=== PATIENT | female | born 1935 | race Caucasian/White ===

== ENCOUNTER 2021-03-02 14:12 | Inpatient (IN) ==
--- NOTE | 2021-03-02 14:34 | Emergency Department Note ---
Impression & Plan Pancreatitis, Nausea & vomiting, Acute dehydration ED Provider Note NAME: SAMMI BARAJAS AGE: 85 SEX: F : 1935 ARRIVES VIA: Walk-In INFORMANT: Patient, ED PROVIDER(S): Jose Raul Jeffries MD Chief Complaint: Nausea vomiting HPI: Patient does present with concern for nausea and vomiting. The patient states that it began around 1:00. Patient had last eaten around 1030 with a friend. The friend is not had any similar symptoms. Patient states that this does happen every so often most recently 6 months and several years prior to this. Patient reports that nothing is been found as to the etiology of her sy mptoms. Patient denies any chest pains or abdominal pains. Patient states typically she gets an IV and received IV medications at which point she subsequently improves. Patient denies any cough fevers or chills. The patient does have a history of kidney stones and lithotripsy. Patient states that she has absolutely no pain. The patient did have an x-ray completed along with an ultrasound completed at [facility] this morning. The patient did try to take something for her nausea but vomited soon thereafter. Patient denies any blood in the vomit. The patient's had recent bowel movements no dysuria hematuria bright red blood per rectum or dark stool. Patient states that she do es not follow with GI and she is never had an endoscopy. ROS: See HPI for pertinent positives and negatives. A total of 10 systems were reviewed and otherwise negative. Past medical history: See below Surgical history: See below Social history: See below Physical Exam: GENERAL: Mildly uncomfortable in appearance, emesis bag in hand. EYE EXAM: Normal conjunctiva. PERRL, no anisocoria and EOM's grossly intact w/o pain. NECK: Supple, no nuchal rigidity, no adenopathy, non-tender. No signs of meningismus. LUNGS: Clear to auscultation. Normal chest wall mechanics. HEART: NSR, no MRG. ABDOMEN: Abdomen soft, non-tender, normo-active bowel sounds, no masses, no rebound or guarding. BACK: No CVA TTP. SKIN: No rashes and no bruising. UPPER EXTREMITIES: Upper extremities are grossly normal. LOWER EXTREMITIES: Grossly normal, no edema. NEURO EXAM: A&O x3, cranial nerves II-XII grossly intact, normal speech, moves all 4 extremities on command w/o issue. Differential diagnoses: Gastroenteritis, food borne illness, infections, appendicitis, diverticulitis, inflammatory bowel disease, obstruction, GI bleed, biliary pathology, volvulus, as well as other pathologies. Course: Patient was seen and evaluated the bedside. Full history physical exam was performed. EKG interpreted by me Indication: Vomiting Normal sinus rhythm, rate of 68, normal intervals, normal axis, no ST changes or T WI. No significant change from comparison EKG November 02, 2010. Imaging Studies: See below Cardiac monitoring: An order was placed for continuous cardiac monitoring. The monitor shows a rate of 82 with sinus rhythm. MDM: Patient was seen due to concern for nausea and vomiting. The patient has no abdominal pain on exam. The patient is a history of kidney stones. Blood work is obtained along with an EKG troponin and the patient treated symptomatically with IV fluids and antiemetics. Patient blood work does show elevated lipase. The patient was ordered a CAT scan of the abdomen pelvis. Upon reassessment the patient was still having nausea so she was ordered additional antiemetics. I did review the patient's outpatient renal ultrasound which showed bilateral nephrolithiasis with apparent right renal cyst. The patient had an x-ray that did not show any demonstrable kidney stones. Patient's white count H&H and platelet count are normal. Mild prerenal azotemia. Troponin is not detectable. CT without any obvious evidence of pancreatitis. Patient subsequently did have some mild improvement in her symptoms. Given the pancreatitis I did speak the on-call hospitalist and instructing DREW kaye. Patient was admitted to Dr. Vasquez [facility]. Past Med/Surg History Medical History (Updated 03/02/21 @ 19:23 by Mabel Andrews PA-C) CKD (chronic kidney disease), stage III Dyslipidemia Glaucoma HTN (hypertension) Kidney stones PVCs (premature ventricular contractions) SVT (supraventricular tachycardia) Surgical History (Updated 03/02/21 @ 19:21 by Mabel Andrews PA-C) H/O lithotripsy History of appendectomy History of cardiac radiofrequency ablation History of cholecystectomy Family History (Updated 03/02/21 @ 19:22 by Mabel Andrews PA-C) Mother Colorectal cancer Diabetes Social History (Updated 03/02/21 @ 19:23 by Mabel Andrews PA-C) Smoking Status: Former smoker Hx Alcohol Use: No Hx Substance Use: No Preferred Language: [place] Feels Safe at Home: Yes Allergies Allergies Allergy/AdvReac Type Severity Reaction Status Date / Time brimonidine Allergy Irritable Unverified 03/02/21 16:30 bupropion [From Wellbutrin] Allergy IRREGULAR Unverified 03/02/21 16:30 HEART RATE oxycodone Allergy Unknown Unverified 03/02/21 16:30 tramadol Allergy Unknown Unverified 03/02/21 16:30 TRAVATAN Z, RESTASIS, Allergy Mild RASH Uncoded 11/02/10 09:32 ALPHAGAN Home Meds Home Medications Medication Instructions Recorded Confirmed acetaminophen [Tylenol Extra 500 mg PO Q6H PRN 03/02/21 03/02/21 Strength] aspirin [Aspirin Low Dose] 81 mg PO DAILY 03/02/21 03/02/21 biotin 5,000 mcg PO DAILY 03/02/21 03/02/21 carboxymethylcellulose sodium 1 drp OPB DAILY 03/02/21 03/02/21 [Refresh Liquigel] diphenoxylate-atropine 1 tab PO DAILY PRN 03/02/21 03/02/21 famotidine 20 mg PO DAILY 03/02/21 03/02/21 glucos sul [id number] 1 cap PO DAILY 03/02/21 03/02/21 [Glucosamine Chondroitin] meclizine 25 mg PO TID 03/02/21 03/02/21 meloxicam 7.5 mg PO DAILY 03/02/21 03/02/21 metoprolol succinate 25 mg PO DAILY 03/02/21 03/02/21 minoxidil [Rogaine] 1 ea TOPICAL DAILY 03/02/21 03/02/21 multivitamin 1 tab PO DAILY 03/02/21 03/02/21 ondansetron 4 mg PO Q8H PRN 03/02/21 03/02/21 sennosides-docusate sodium [Senna 1 tab-cap PO HS 03/02/21 03/02/21 with Docusate Sodium] simvastatin 10 mg PO HS 03/02/21 03/02/21 travoprost 1 drp OPB HS 03/02/21 03/02/21 Results & Data (ED) Vital Signs Vital Signs - 24 hr 03/02/21 14:24 03/02/21 16:30 03/02/21 18:00 Temperature 36.8 C Temperature Source Temporal Artery Scan Pulse Rate 82 Pulse Rate [Left Apical] 62 69 Pulse Rate from SpO2 Sensor Pulse Rhythm [Left Apical] Regular Regular Pulse Strength [Left Apical] Normal Normal Respiratory Rate 18 18 16 Respiratory Effort / Characteristics Non-Labored Spontaneous Non-Labored Spontaneous Non-Labored Spontaneous Respiratory Depth Normal Normal Normal Respiratory Pattern Regular Regular Regular Blood Pressure 135/77 Blood Pressure [Right Arm] 135/63 149/83 H Blood Pressure Mean 96 Blood Pressure Mean [Right Arm] 87 105 Blood Pressure Position Sitting Blood Pressure Position [Right Arm] Lying Pulse Oximetry 100 99 97 Oxygen Delivery Method Room Air Room Air Room Air Sepsis Recent Fever Within 48 Hours No Sepsis New/Unexplained Change in Mental Status N/A Sepsis Action Taken by Nursing No Action Required 03/02/21 19:00 03/02/21 19:01 03/02/21 19:30 Temperature Temperature Source Pulse Rate 67 71 Pulse Rate [Left Apical] Pulse Rate from SpO2 Sensor 68 67 84 Pulse Rhythm [Left Apical] Pulse Strength [Left Apical] Respiratory Rate 21 23 15 Respiratory Effort / Characteristics Respiratory Depth Respiratory Pattern Blood Pressure 131/57 L Blood Pressure [Right Arm] Blood Pressure Mean 81 Blood Pressure Mean [Right Arm] Blood Pressure Position Blood Pressure Position [Right Arm] Pulse Oximetry 98 94 94 Oxygen Delivery Method Sepsis Recent Fever Within 48 Hours Sepsis New/Unexplained Change in Mental Status Sepsis Action Taken by Nursing 03/02/21 19:31 03/02/21 20:00 03/02/21 20:01 Temperature Temperature Source Pulse Rate 70 60 61 Pulse Rate [Left Apical] Pulse Rate from SpO2 Sensor 68 56 L 62 Pulse Rhythm [Left Apical] Pulse Strength [Left Apical] Respiratory Rate 14 20 14 Respiratory Effort / Characteristics Respiratory Depth Respiratory Pattern Blood Pressure 101/44 L 106/47 L Blood Pressure [Right Arm] Blood Pressure Mean 63 66 Blood Pressure Mean [Right Arm] Blood Pressure Position Blood Pressure Position [Right Arm] Pulse Oximetry 94 93 95 Oxygen Delivery Method Sepsis Recent Fever Within 48 Hours Sepsis New/Unexplained Change in Mental Status Sepsis Action Taken by Shelter Medications Current Medication List: was personally reviewed by me Laboratory Data Attestation: I reviewed the patient's lab results. Result diagrams: 03/02/21 14:50 03/02/21 14:50 Lab Results 03/02/21 03/02/21 03/02/21 Range/Units 14:50 14:50 14:50 WBC 8.99 (4.8-10.8) K/uL RBC 5.00 (4.2-5.4) M/uL Hgb 14.6 (12.0-16.0) g/dL Hct 43.9 (37-47) % MCV 87.8 (80-100) fL MCH 29.2 (25-34) pg MCHC 33.3 (32-36) g/dL RDW Std Deviation 43.7 (36.4-46.3) fL RDW Coeff of Lina 13.6 (11.5-14.5) % Plt Count 169 (130-400) K/uL MPV 10.9 H (7.4-10.4) fL Immature Gran % (Auto) 0.3 % Neut % (Auto) 72.6 % Lymph % (Auto) 16.2 % Winn % (Auto) 9.7 % Eos % (Auto) 1.0 % Baso % (Auto) 0.2 % Neut # (Auto) 6.52 H (1.4-6.5) K/uL Lymph # (Auto) 1.46 (1.2-3.4) K/uL Winn # (Auto) 0.87 H (0.11-0.59) K/uL Eos # (Auto) 0.09 (0-0.5) K/uL Baso # (Auto) 0.02 (0-0.2) K/uL Immature Gran # (Auto) 0.03 H (0.00-0.02) K/uL PT 10.3 (9.0-12.0) Seconds INR 1.0 (0.9-1.1) Sodium 140 (136-145) mmol/L Potassium 3.6 (3.5-5.1) mmol/L Chloride 107 (98-107) mmol/L Carbon Dioxide 25 (21-32) mmol/L Anion Gap 8.0 (3-11) BUN 24 H (7-18) mg/dl Creatinine 0.73 (0.6-1.2) mg/dl Est Cr Clr Drug Dosing Not Reportable Est GFR ( Amer) 86.4 Est GFR (Non-Af Amer) 74.6 BUN/Creatinine Ratio 32.7 H (10-20) Glucose 111 H (70-99) mg/dl Calcium 9.3 (8.5-10.1) mg/dl Total Bilirubin 0.7 (0.2-1) mg/dl AST 23 (15-37) U/L ALT 36 (12-78) U/L Alkaline Phosphatase 84 (45-117) U/L Troponin I < 0.015 (0-0.045) ng/ml Total Protein 7.1 (6.4-8.2) gm/dl Albumin 3.9 (3.4-5.0) gm/dl Globulin 3.2 (2.5-4.0) gm/dl Albumin/Globulin Ratio 1.2 (0.9-2) Lipase 1091 H (73-393) U/L Urine Color Urine Appearance (Clear) Urine pH (4.5-7.5) Ur Specific [place] (1.000-1.030) Urine Protein (Negative) Urine Glucose (UA) (Negative) Urine Ketones (Negative) Urine Blood (Negative) Urine Nitrite (Negative) Urine Bilirubin (Negative) Urine Urobilinogen (Negative) Ur Leukocyte Esterase (Negative) Urine WBC (Auto) (0-5) /hpf Urine RBC (Auto) (0-4) /hpf U Hyaline Cast (Auto) (0-5) /lpf U Epithel Cells (Auto) (0-5) /lpf Urine Bacteria (Auto) (Negative) COVID-19 Eval Order SARS-CoV-2 (PCR) (Negative) Influenza Type A (PCR) (Neg) Influenza Type B (PCR) (Neg) RSV (RT-PCR) (Neg) 03/02/21 03/02/21 03/02/21 Range/Units 16:25 16:25 17:30 WBC (4.8-10.8) K/uL RBC (4.2-5.4) M/uL Hgb (12.0-16.0) g/dL Hct (37-47) % MCV (80-100) fL MCH (25-34) pg MCHC (32-36) g/dL RDW Std Deviation (36.4-46.3) fL RDW Coeff of Lina (11.5-14.5) % Plt Count (130-400) K/uL MPV (7.4-10.4) fL Immature Gran % (Auto) % Neut % (Auto) % Lymph % (Auto) % Winn % (Auto) % Eos % (Auto) % Baso % (Auto) % Neut # (Auto) (1.4-6.5) K/uL Lymph # (Auto) (1.2-3.4) K/uL Winn # (Auto) (0.11-0.59) K/uL Eos # (Auto) (0-0.5) K/uL Baso # (Auto) (0-0.2) K/uL Immature Gran # (Auto) (0.00-0.02) K/uL PT (9.0-12.0) Seconds INR (0.9-1.1) Sodium (136-145) mmol/L Potassium (3.5-5.1) mmol/L Chloride (98-107) mmol/L Carbon Dioxide (21-32) mmol/L Anion Gap (3-11) BUN (7-18) mg/dl Creatinine (0.6-1.2) mg/dl Est Cr Clr Drug Dosing Est GFR ( Amer) Est GFR (Non-Af Amer) BUN/Creatinine Ratio (10-20) Glucose (70-99) mg/dl Calcium (8.5-10.1) mg/dl Total Bilirubin (0.2-1) mg/dl AST (15-37) U/L ALT (12-78) U/L Alkaline Phosphatase (45-117) U/L Troponin I (0-0.045) ng/ml Total Protein (6.4-8.2) gm/dl Albumin (3.4-5.0) gm/dl Globulin (2.5-4.0) gm/dl Albumin/Globulin Ratio (0.9-2) Lipase (73-393) U/L Urine Color Yellow Urine Appearance Clear (Clear) Urine pH 5.5 (4.5-7.5) Ur Specific [place] 1.021 (1.000-1.030) Urine Protein Negative (Negative) Urine Glucose (UA) Negative (Negative) Urine Ketones 2+ H (Negative) Urine Blood 2+ H (Negative) Urine Nitrite Negative (Negative) Urine Bilirubin Negative (Negative) Urine Urobilinogen Negative (Negative) Ur Leukocyte Esterase 2+ H (Negative) Urine WBC (Auto) 5-10 H (0-5) /hpf Urine RBC (Auto) >30 H (0-4) /hpf U Hyaline Cast (Auto) 1-5 (0-5) /lpf U Epithel Cells (Auto) >30 H (0-5) /lpf Urine Bacteria (Auto) Negative (Negative) COVID-19 Eval Order CovFluRsv at [facility] SARS-CoV-2 (PCR) NEGATIVE (Negative) Influenza Type A (PCR) Negative (Neg) Influenza Type B (PCR) Negative (Neg) RSV (RT-PCR) Negative (Neg) Administered Medications Discontinued Medications Sodium Chloride (Nss 1000ml) 1,000 mls @ 999 mls/hr IV .Q1H1M STA Stop: 03/02/21 15:39 Last Infusion: 03/02/21 16:17 Dose: 0 mls/hr Documented by: [id number] Admin: 03/02/21 14:53 Dose: 999 mls/hr Documented by: [id number] Promethazine HCl (Phenergan) 12.5 mg in 50.5 mls @ 202 mls/hr IV NOW STA Stop: 03/02/21 16:22 Last Infusion: 03/02/21 16:52 Dose: 0 mls/hr Documented by: [id number] Admin: 03/02/21 16:32 Dose: 202 mls/hr Documented by: [id number] Sodium Chloride (Nss 1000ml) 500 mls @ 999 mls/hr IV .Q31M ONE Stop: 03/02/21 16:38 Last Infusion: 03/02/21 18:15 Dose: 0 mls/hr Documented by: [id number] Admin: 03/02/21 16:31 Dose: 999 mls/hr Documented by: [id number] Ioversol (Optiray 300 100ml) 85 ml IV ONCE ONE Stop: 03/02/21 17:40 Last Admin: 03/02/21 17:40 Dose: 85 ml Documented by: [id number] Ondansetron HCl (Ondansetron Inj 2 Mg/Ml 2 Ml Vial) 4 mg IV NOW STA Stop: 03/02/21 14:40 Last Admin: 03/02/21 14:53 Dose: 4 mg Documented by: [id number] Imaging Data Radiologist's Impression: Abdomen/Pelvis CT 03/02/21 16:[address] WITH IV CONTRAST CT DOSE: 555.77 mGy.cm HISTORY: Acute nausea with vomiting and elevated lipase. elevated lipase, vomiting TECHNIQUE: Multiaxial CT images of the abdomen and pelvis were performed following the IV administration of 85 cc of Optiray, A dose lowering technique was utilized adhering to the principles of ALARA. COMPARISON STUDY: None FINDINGS: The imaged inferior cardiac chambers are unremarkable. Mild dependent bibasilar atelectasis. No pneumatosis or pneumoperitoneum. The spleen and adrenal glands are unremarkable. Mild generalized pancreatic atrophy. No pancrea tic ductal dilation or CT evidence of acute pancreatitis. 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 Cholecystectomy with mild intrahepatic and extrahepatic biliary ductal prominence, the common bile duct measuring up to 1.3 cm transversely. Findings are presumed to be on a postsurgical basis. Bilateral renal cysts. Several hypodensities of the kidneys are too small to characterize. There are least 4 nonobstructing calculi of the right kidney. 8 mm calculus of the right renal pelvis. No hydronephrosis. No ureteral calculi identified. Unremarkable urinary bladder. Hysterectomy. No adnexal mass lesion. Calcified plaque the abdominal aorta without aneurysm. There is no adenopathy. Small fat filled left inguinal hernia. No bowel obstruction or bowel wall thickening. Colonic diverticulosis. Appendectomy. Postoperative changes of the anterior abdominal wall. Right hip total joint arthroplasty. Degenerative changes of the spine, pelvis and left hip. T11 and T12 compression deformities without retropulsion are technically age-indeterminate however likely chronic. IMPRESSION: 1. No bowel obstruction or bowel wall thickening. 2. No CT evidence of acute pancreatitis. 3. Cholecystectomy with likely postsurgical related mild intrahepatic and extrahepatic biliary ductal prominence. 4. Nonobstructing right nephrolithiasis with 8 mm calculus of the right renal pelvis. No hydronephrosis. 5. Colonic diverticulosis. 6. Additional findings as above. ACT 112: Negative or not required by law. The above report was generated using voice recognition software. It may contain grammatical, syntax or spelling errors. Electronically signed by: Arnold Nassar M.D. 03/02/2021 5:57 PM Discharge Plan Visit Data Chief Complaint: Vomiting Stated Complaint: CANNOT STOP THROWING UP ED Provider: Jose Raul Jeffries Discharge Problem: Pancreatitis, Nausea & vomiting, Acute dehydration Patient Disposition: Admitted As Inpatient Discharge Instructions Interventions: ED Discharge Assessment Last Done: 03/02/21 20:31 Forms Stand Alone Forms: Laurence Smith [employer] Prescriptions Prescriptions: No Action multivitamin Tablet 1 tab PO DAILY RF: 0 sennosides-docusate sodium [Senna with Docusate Sodium] 8.6-50 mg Tablet 1 tab-cap PO HS RF: 0 simvastatin 10 mg Tablet 10 mg PO HS RF: 0 travoprost 0.004 % drops 1 drp OPB HS RF: 0 diphenoxylate-atropine 2.5-0.025 mg Tablet 1 tab PO DAILY PRN (Reason: Diarrhea) RF: 0 aspirin [Aspirin Low Dose] 81 mg Tablet,Delayed Release (Dr/Ec) 81 mg PO DAILY RF: 0 acetaminophen [Tylenol Extra Strength] 500 mg Tablet 500 mg PO Q6H PRN (Reason: Pain) RF: 0 meloxicam 7.5 mg tablet 7.5 mg PO DAILY RF: 0 famotidine 20 mg Tablet 20 mg PO DAILY RF: 0 meclizine 25 mg Tablet 25 mg PO TID RF: 0 metoprolol succinate 25 mg tablet extended release 24 hr 25 mg PO DAILY RF: 0 Refresh Liquigel 1 % Drops, Liquid Gel 1 drp OPB DAILY RF: 0 minoxidil [Rogaine] 5 % Foam 1 ea TOPICAL DAILY RF: 0 ondansetron 4 mg Film 4 mg PO Q8H PRN (Reason: Nausea) RF: 0 biotin 1,000 mcg Tablet,Chewable 5,000 mcg PO DAILY RF: 0 Glucosamine Chondroitin 550-30-1 mg Capsule 1 cap PO DAILY RF: 0 Referrals Referrals: Verona Fitzgerald DO [Primary Care Provider] - Discharge Problem: Pancreatitis Qualifiers: Chronicity: acute Pancreatitis type: unspecified pancreatitis type Acute pancreatitis complication: unspecified Qualified Code(s): K85.90 - Acute pancreatitis without necrosis or infection, unspecified Nausea & vomiting Qualifiers: Vomiting type: unspecified Vomiting Intractability: non-intractable Qualified Code(s): R11.2 - Nausea with vomiting, unspecified
[2021-03-02] MEDS ORDERED: SODIUM CHLORIDE 0.9% 1000ML 1,000 ML IV STA (14:39)
[2021-03-02] MEDS ORDERED: ONDANSETRON INJ 2 MG/ML 2 ML VIAL IV STA (14:39)
[2021-03-02 15:00] LABS: Basophils # (auto) 0.02 K/uL (0-0.2); Basophils % (auto) 0.2 %; Eosinophils # (auto) 0.09 K/uL (0-0.5); Hematocrit (blood only) 43.9 % (37-47); Hemoglobin 14.6 g/dL (12.0-16.0); Immature Granulocytes # (auto) 0.03 K/uL (0.00-0.02); Immature Granulocytes % (auto) 0.3 %; Lymphocytes # (auto) 1.46 K/uL (1.2-3.4); Lymphocytes % (auto) 16.2 %; Mean Corpuscular Hemoglobin 29.2 pg (25-34); Mean Corpuscular Hgb Conc 33.3 g/dL (32-36); Mean Corpuscular Volume 87.8 fL (80-100); Mean Platelet Volume 10.9 fL (7.4-10.4); Monocytes # (auto) 0.87 K/uL (0.11-0.59); Monocytes % (auto) 9.7 %; Neutrophils # (auto) 6.52 K/uL (1.4-6.5); Neutrophils % (auto) 72.6 %; Platelet Count 169 K/uL (130-400); RDW Coefficient of Variation 13.6 % (11.5-14.5); RDW Standard Deviation 43.7 fL (36.4-46.3); White Blood Count 8.99 K/uL (4.8-10.8)
[2021-03-02 15:13] LABS: Prothrombin Time 10.3 Seconds (9.0-12.0)
[2021-03-02 15:16] LABS: Alanine Aminotransferase 36 U/L (12-78); Albumin Level 3.9 gm/dl (3.4-5.0); Aspartate Aminotransferase 23 U/L (15-37); BUN Creatinine Ratio 32.7 (10-20); Blood Urea Nitrogen 24 mg/dl (7-18); Calcium 9.3 mg/dl (8.5-10.1); Carbon Dioxide 25 mmol/L (21-32); Chloride 107 mmol/L (98-107); Est GFR (African American) 86.4; Est GFR (Non-African American) 74.6; Glucose 111 mg/dl (70-99); Lipase 1091 U/L (73-393); Potassium 3.6 mmol/L (3.5-5.1); Sodium 140 mmol/L (136-145)
[2021-03-02 15:21] LABS: Albumin Globulin Ratio 1.2 (0.9-2); Alkaline Phosphatase 84 U/L (45-117); Bilirubin,Total 0.7 mg/dl (0.2-1); Globulin 3.2 gm/dl (2.5-4.0); Total Protein 7.1 gm/dl (6.4-8.2); Troponin I < 0.015 ng/ml (0-0.045)
[2021-03-02] MEDS ORDERED: PROMETHAZINE 12.5 MG/50.5 ML BAG IV STA (16:08)
[2021-03-02] MEDS ORDERED: SODIUM CHLORIDE 0.9% 1000ML 500 ML IV ONE (16:08)
[2021-03-02 17:19] LABS: Influenza A virus by PCR Negative (Neg); Influenza B virus by PCR Negative (Neg); RSV by PCR Negative (Neg); SARS CoV2 RNA(COVID-19) InHosp NEGATIVE (Negative)
[2021-03-02] MEDS ORDERED: OPTIRAY 300 100mL IV ONE (17:39)
--- NOTE | 2021-03-02 17:58 | CT Scan Report ---
ABDOMEN AND PELVIS CT WITH IV CONTRAST CT DOSE: 555.77 mGy.cm HISTORY: Acute nausea with vomiting and elevated lipase. elevated lipase, vomiting TECHNIQUE: Multiaxial CT images of the abdomen and pelvis were performed following the IV administrat ion of 85 cc of Optiray, A dose lowering technique was utilized adhering to the principles of ALARA. COMPARISON STUDY: None FINDINGS: The imaged inferior cardiac chambers are unremarkable. Mild dependent bibasilar atelectasis . No pneumatosis or pneumoperitoneum. The spleen and adrenal glands are unremarkable. Mild generalize d pancreatic atrophy. No pancreatic ductal dilation or CT evidence of acute pancreatitis. 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 Cholecystectomy with mild intrahepa tic and extrahepatic biliary ductal prominence, the common bile duct measuring up to 1.3 cm transvers josé miguel. Findings are presumed to be on a postsurgical basis. Bilateral renal cysts. Several hypodensities of the kidneys are too small to characterize. There are least 4 nonobstructing calculi of the right kidney. 8 mm calculus of the right renal pelvis. No hydro nephrosis. No ureteral calculi identified. Unremarkable urinary bladder. Hysterectomy. No adnexal mas s lesion. Calcified plaque the abdominal aorta without aneurysm. There is no adenopathy. Small fat fi lled left inguinal hernia. No bowel obstruction or bowel wall thickening. Colonic diverticulosis. Appendectomy. Postoperative ch anges of the anterior abdominal wall. Right hip total joint arthroplasty. Degenerative changes of the spine, pelvis and left hip. T11 and T12 compression deformities without retropulsion are technically age-indeterminate however likely chronic. IMPRESSION: 1. No bowel obstruction or bowel wall thickening. 2. No CT evidence of acute pancreatitis. 3. Cholecystectomy with likely postsurgical related mild intrahepatic and extrahepatic biliary ductal prominence. 4. Nonobstructing right nephrolithiasis with 8 mm calculus of the right renal pelvis. No hydronephros is. 5. Colonic diverticulosis. 6. Additional findings as above. ACT 112: Negative or not required by law. The above report was generated using voice recognition software. It may contain grammatical, syntax o r spelling errors. Electronically signed by: Arnold Nassar M.D. 03/02/2021 5:57 PM
[2021-03-02 18:21] LABS: Appearance Urine Clear (Clear); Bacteria Urine Automated Negative (Negative); Bilirubin Urine Negative (Negative); Blood Urine 2+ (Negative); Color Urine Yellow; Epithelial Cell Urine Auto >30 /lpf (0-5); Glucose Urine UA Negative (Negative); Ketones Urine 2+ (Negative); Leukocyte Esterase Urine 2+ (Negative); Nitrite Urine Negative (Negative); Protein Urine Negative (Negative); RBC Urine Automated >30 /hpf (0-4); Specific Gravity Urine 1.021 (1.000-1.030); Urobilinogen Urine Negative (Negative); pH Urine 5.5 (4.5-7.5)
--- NOTE | 2021-03-02 19:10 | History & Physical Report ---
Date of Service March 02, 2021 Assessment & Plan (1) Nausea & vomiting: Elevated Lipase Pt is 85 y/o F with PMH SVT s/p ablation in 2013, PVCs on Toprol, HTN, dyslipidemia presented to ER with complaint of nausea and vomiting today. Denies fever, abdominal pain. H/O similar occurrences in past. In ER afebrile, Vitals stable. No leukocytosis, Lipase: 1091. Liver functions WNL CT ABD/PELVIS: no acute pancreatitis. no bowel obstruction. Cholecystectomy with likely postsurgical related mild intrahepatic and extrahepatic biliary ductal prominence. DDX:pancreatitis. Pt however without abdominal pain and has resolution of N/V with antiemetics and IVF in ER. Denies new medications, ETOH use and no signs acute IVF Clear liquids CBC, CMP, Lipase in am (2) SVT (supraventricular tachycardia): S/P Ablation in 2013 H/O symptomatic PVCs Continue metoprolol (3) Dyslipidemia: Hold statin for now with GI symptoms (4) CKD (chronic kidney disease), stage III: Cr: 0.7. Baseline Cr: 0.9 Monitor renal functions, avoid nephrotoxic agents when possible DVT Prophylaxis -Heparin SQ Full Code as per discussion with pt Follows with Dr Fitzgerald for routine care Pt was seen and care coordinated with Dr Vasquez. See addendum History of Present Illness Chief Complaint: nausea, vomiting Primary Care Provider: Verona Fitzgerald, Pt is 85 y/o F with PMH SVT s/p ablation in 2013, PVCs on Toprol, HTN, dyslipidemia presented to ER with complaint of nausea and vomiting today. Patient states had renal ultrasound and abdomen xray today for h/o nephrolithiasis. She then ate chocolate pancakes at a restaurant. Shortly after was followed with nausea and several episodes of vomiting. Patient denies any abdominal pain. Denies any fevers or chills. Friend who also ate at restaurant is without symptoms. Patient states has had multiple episodes of sudden onset of nausea and vomiting in past and reports has pain evaluated at [facility] ER with negative work-ups in the past. Denies follow up with GI in past. She does state today was the worst this has been. Patient with history kidney stones and reports no abdominal or flank pain with passing stones in the past. Patient with history of constipation and takes Senokot-S at night, however if she eats out at restaurant will have diarrhea. She takes Lomotil prior to eating out at restaurants which she states she had today. States had to doses COVID-19 vaccine. Denies diaphoresis, hematemesis, hematochezia. WELSH, dizziness, syncope, vision changes, neck pain, CP, SOB, orthopnea, palpitations, cough, sore throat, choking, otalgia, rhinorrhea, paresthesias, weakness, extremity weakness, extremity edema, rashes, urinary symptoms. Allergies Allergy/AdvReac Type Severity Reaction Status Date / Time brimonidine Allergy Irritable Unverified 03/02/21 16:30 bupropion [From Wellbutrin] Allergy IRREGULAR Unverified 03/02/21 16:30 HEART RATE oxycodone Allergy Unknown Unverified 03/02/21 16:30 tramadol Allergy Unknown Unverified 03/02/21 16:30 TRAVATAN Z, RESTASIS, Allergy Mild RASH Uncoded 11/02/10 09:32 ALPHAGAN Home Medications Medication Instructions Recorded Confirmed Type acetaminophen [Tylenol Extra 500 mg PO Q6H PRN 03/02/21 03/02/21 History Strength] aspirin [Aspirin Low Dose] 81 mg PO DAILY 03/02/21 03/02/21 History biotin 5,000 mcg PO DAILY 03/02/21 03/02/21 History carboxymethylcellulose sodium 1 drp OPB DAILY 03/02/21 03/02/21 History [Refresh Liquigel] diphenoxylate-atropine 1 tab PO DAILY PRN 03/02/21 03/02/21 History famotidine 20 mg PO DAILY 03/02/21 03/02/21 History glucos sul [id number] 1 cap PO DAILY 03/02/21 03/02/21 History [Glucosamine Chondroitin] meclizine 25 mg PO TID 03/02/21 03/02/21 History meloxicam 7.5 mg PO DAILY 03/02/21 03/02/21 History metoprolol succinate 25 mg PO DAILY 03/02/21 03/02/21 History minoxidil [Rogaine] 1 ea TOPICAL DAILY 03/02/21 03/02/21 History multivitamin 1 tab PO DAILY 03/02/21 03/02/21 History ondansetron 4 mg PO Q8H PRN 03/02/21 03/02/21 History sennosides-docusate sodium [Senna 1 tab-cap PO HS 03/02/21 03/02/21 History with Docusate Sodium] simvastatin 10 mg PO HS 03/02/21 03/02/21 History travoprost 1 drp OPB HS 03/02/21 03/02/21 History Past Med/Surg History Medical History (Updated 03/02/21 @ 19:23 by Mabel Andrews PA-C) CKD (chronic kidney disease), stage III Dyslipidemia Glaucoma HTN (hypertension) Kidney stones PVCs (premature ventricular contractions) SVT (supraventricular tachycardia) Surgical History (Updated 03/02/21 @ 19:21 by Mabel Andrews PA-C) H/O lithotripsy History of appendectomy History of cardiac radiofrequency ablation History of cholecystectomy Family History (Updated 03/02/21 @ 19:22 by Mabel Andrews PA-C) Mother Colorectal cancer Diabetes Social History (Updated 03/02/21 @ 19:23 by Mabel Andrews PA-C) Smoking Status: Former smoker Second Hand Exposure: No; Do You Dip or Chew Tobacco: No; Hx Alcohol Use: No Hx Substance Use: No Preferred Language: Frisian Communication Ability: Effective Systems Specialist Required: No Beliefs That Will Affect Care: None Current Living Situation: Alone Feels Safe at Home: Yes Safety Concerns: Feels Safe At This Time Assistive Devices: Walker Review of Systems Review of Systems: All systems reviewed & are unremarkable except as noted in HPI & below Physical Exam Physical Exam: General: no distress, WDWN Head: normocephalic, atraumatic Eyes: conjunctiva non-injected, anicteric ENT: normal inspection external ears, nose, mucous membranes moist Neck: supple, trachea midline Lungs: clear, no respiratory distress, no wheezing/rhonchi/rales CV: RRR, no murmur, no pretibial edema Abd: normal BS, soft, non-tender Ext: no cyanosis, no calf tenderness Neuro: A&O x 3, no focal deficits noted, normal affect Skin: warm, dry Results & Data Results & Data ([facility]) Vital Signs (Past 12 Hours) Vital Signs Temp Pulse Pulse Resp BP BP Pulse Ox 03/02/21 18:00 69 16 149/83 H 97 03/02/21 16:30 62 18 135/63 99 03/02/21 14:24 36.8 C 82 18 135/77 100 Laboratory Results Short CBC 03/02/21 Range/Units 14:50 WBC 8.99 (4.8-10.8) K/uL Hgb 14.6 (12.0-16.0) g/dL Hct 43.9 (37-47) % Plt Count 169 (130-400) K/uL BMP 03/02/21 14:50 Sodium 140 Potassium 3.6 Chloride 107 Carbon Dioxide 25 BUN 24 H Creatinine 0.73 Glucose 111 H Calcium 9.3 Cardiac Enzymes 03/02/21 Range/Units 14:50 Troponin I < 0.015 (0-0.045) ng/ml Liver Function 03/02/21 Range/Units 14:50 Total Bilirubin 0.7 (0.2-1) mg/dl AST 23 (15-37) U/L ALT 36 (12-78) U/L Alkaline Phosphatase 84 (45-117) U/L Albumin 3.9 (3.4-5.0) gm/dl Urine 03/02/21 Range/Units 17:30 Urine Color Yellow Urine Appearance Clear (Clear) Urine pH 5.5 (4.5-7.5) Ur Specific [place] 1.021 (1.000-1.030) Urine Protein Negative (Negative) Urine Glucose (UA) Negative (Negative) Diagnostic Findings Abdomen/Pelvis CT 03/02/21 16:[address] WITH IV CONTRAST CT DOSE: 555.77 mGy.cm HISTORY: Acute nausea with vomiting and elevated lipase. elevated lipase, vomiting TECHNIQUE: Multiaxial CT images of the abdomen and pelvis were performed following the IV administration of 85 cc of Optiray, A dose lowering technique was utilized adhering to the principles of ALARA. COMPARISON STUDY: None FINDINGS: The imaged inferior cardiac chambers are unremarkable. Mild dependent bibasilar atelectasis. No pneumatosis or pneumoperitoneum. The spleen and adrenal glands are unremarkable. Mild generalized pancreatic atrophy. No pancreatic ductal dilation or CT evidence of acute pancreatitis. 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 Cholecystectomy with mild intrahepatic and extrahepatic biliary ductal prominence, the common bile duct measuring up to 1.3 cm transversely. Findings are presumed to be on a postsurgical basis. Bilateral renal cysts. Several hypodensities of the kidneys are too small to characterize. There are least 4 nonobstructing calculi of the right kidney. 8 mm calculus of the right renal pelvis. No hydronephrosis. No ureteral calculi identified. Unremarkable urinary bladder. Hysterectomy. No adnexal mass lesion. Calcified plaque the abdominal aorta without aneurysm. There is no adenopathy. Small fat filled left inguinal hernia. No bowel obstruction or bowel wall thickening. Colonic diverticulosis. Appendectomy. Postoperative changes of the anterior abdominal wall. Right hip total joint arthroplasty. Degenerative changes of the spine, pelvis and left hi p. T11 and T12 compression deformities without retropulsion are technically age- indeterminate however likely chronic. IMPRESSION: 1. No bowel obstruction or bowel wall thickening. 2. No CT evidence of acute pancreatitis. 3. Cholecystectomy with likely postsurgical related mild intrahepatic and extrahepatic biliary ductal prominence. 4. Nonobstructing right nephrolithiasis with 8 mm calculus of the right renal pelvis. No hydronephrosis. 5. Colonic diverticulosis. 6. Additional findings as above. ACT 112: Negative or not required by law. The above report was generated using voice recognition software. It may contain grammatical, syntax or spelling errors. Electronically signed by: Arnold Nassar M.D. 03/02/2021 5:57 PM Code Status & VTE Plan VTE Prophylaxis Plan VTE Prophylaxis will be ordered: Yes Supervising Physician Co-Signing Physician Notes I have seen and examined the patient and have discussed the case with the provider above. I agree with the assessment and plan as stated. The patient is an 85 yo female with a history of reported nausea and vomiting, who admits to an xray at [facility] today after recent lithotripsy for nephrolithiasis. She reports having to drink 32 ounces of some contrast material prior to the xray, and subsequently developed severe nausea and vomiting. She currently reports no abdominal pain and the antiemetics given in the ER were successful in controlling her symptoms. Physical exam reveals a comfortable, WNWD female in NAD who is oriented, pleasant and cooperative. She has no epigastric tenderness, abdominal tenderness, CVA tenderness, abdominal distension or guarding. Heart and lung exam is within normal limits. CT exam and labs were reviewed with the patient. Lytes and CBC normal. No acute intra-abdominal abnormality or structural evidence of pancreatitis on imaging. She will be monitored in the hospital overnight. It is most likely that her mild lipasemia was a result of the recent procedure, contrast, or the xray and will improve in the morning. She does not appear to have acute pancreatitis, however, that does remain in the differential diagnosis as stated above. DO Pedro (1) Nausea & vomiting Vomiting Intractability: non-intractable Vomiting type: unspecified Qualified Code(s): R11.2 - Nausea with vomiting, unspecified
[2021-03-02] MEDS ORDERED: ONDANSETRON INJ 2 MG/ML 2 ML VIAL IV PRN (21:31)
[2021-03-02] MEDS ORDERED: ACETAMINOPHEN 325 MG TAB PO PRN (21:31)
[2021-03-02] MEDS ORDERED: TRAVOPROST Z 0.004% OPH SOLN 2.5 ML BTL OPB SCH (21:31)
[2021-03-02] MEDS ORDERED: SODIUM CHLORIDE 0.9% 1000ML 1,000 ML IV SCH (21:31)
[2021-03-02] MEDS ORDERED: DOCUSATE SODIUM/SENNA 50/8.6MG TAB PO SCH (22:35)
[2021-03-02] MEDS: METOPROLOL SUCC 25MG EXT REL TAB PO SCH (22:36)
[2021-03-02] MEDS: HEPARIN SOD 5,000 UNIT/0.5 ML VIAL SQ SCH (22:38)
[2021-03-03 06:59] LABS: Hematocrit (blood only) 41.1 % (37-47); Hemoglobin 13.6 g/dL (12.0-16.0); Mean Corpuscular Hemoglobin 29.6 pg (25-34); Mean Corpuscular Hgb Conc 33.1 g/dL (32-36); Mean Corpuscular Volume 89.5 fL (80-100); Mean Platelet Volume 10.6 fL (7.4-10.4); Platelet Count 154 K/uL (130-400); RDW Coefficient of Variation 13.7 % (11.5-14.5); RDW Standard Deviation 44.8 fL (36.4-46.3); Red Blood Count 4.59 M/uL (4.2-5.4); White Blood Count 8.04 K/uL (4.8-10.8)
[2021-03-03 07:40] LABS: Albumin Globulin Ratio 1.2 (0.9-2); Albumin Level 3.2 gm/dl (3.4-5.0); BUN Creatinine Ratio 26.5 (10-20); Bilirubin,Total 0.4 mg/dl (0.2-1); Calcium 7.5 mg/dl (8.5-10.1); Est GFR (African American) 100.3; Est GFR (Non-African American) 86.5; Globulin 2.7 gm/dl (2.5-4.0); Potassium 3.6 mmol/L (3.5-5.1); Total Protein 5.9 gm/dl (6.4-8.2)
--- NOTE | 2021-03-03 08:01 | Electrocardiogram Report ---
Test Reason : Blood Pressure : / mmHG Vent. Rate : 068 BPM Atrial Rate : 068 BPM P-R Int : 178 ms QRS Dur : 070 ms QT Int : 422 ms P-R-T Axes : 033 -05 047 degrees QTc Int : 448 ms Normal sinus rhythm Normal ECG When compared with ECG of 02-NOV-2010 10:23, No significant change was found Confirmed by Devyn Saucedo ([id number]) on 03/03/2021 8:00:43 AM Referred By: REFERRED SELF Confirmed By:Devyn Saucedo
[2021-03-03] MEDS: HEPARIN SOD 5,000 UNIT/0.5 ML VIAL SQ SCH (08:02)
[2021-03-03] MEDS: METOPROLOL SUCC 25MG EXT REL TAB PO SCH (08:03)
[2021-03-03] MEDS ORDERED: FAMOTIDINE 20 MG TAB PO SCH (09:00)
--- NOTE | 2021-03-03 13:37 | Discharge Summary ---
Date of Service March 03, 2021 Admission HPI Per Admitting Provider Pt is 85 y/o F with PMH SVT s/p ablation in 2013, PVCs on Toprol, HTN, dyslipidemia presented to ER with complaint of nausea and vomiting today. Patient states had renal ultrasound and abdomen xray today for h/o nephrolit hiasis. She then ate chocolate pancakes at a restaurant. Shortly after was followed with nausea and several episodes of vomiting. Patient denies any abdominal pain. Denies any fevers or chills. Friend who also ate at restaurant is without symptoms. Patient states has had multiple episodes of sudden onset of nausea and vomiting in past and reports has pain evaluated at [facility] ER with negative work-ups in the past. Denies follow up with GI in past. She does state today was the worst this has been. Patient with history kidney stones and reports no abdominal or flank pain with passing stones in the past. Patient with history of constipation and takes Senokot-S at night, however if she eats out at restaurant will have diarrhea. She takes Lomotil prior to eating out at restaurants which she states she had today. States had to doses COVID-19 vaccine. Denies diaphoresis, hematemesis, hematochezia. WELSH, dizziness, syncope, vision changes, neck pain, CP, SOB, orthopnea, palpitations, cough, sore throat, choking, otalgia, rhinorrhea, paresthesias, weakness, extremity weakness, extremity edema, rashes, urinary symptoms. Admission Exam Per Admitting Provider General: no distress, WDWN Head: normocephalic, atraumatic Eyes: conjunctiva non-injected, anicteric ENT: normal inspection external ears, nose, mucous membranes moist Neck: supple, trachea midline Lungs: clear, no respiratory distress, no wheezing/rhonchi/rales CV: RRR, no murmur, no pretibial edema Abd: normal BS, soft, non-tender Ext: no cyanosis, no calf tenderness Neuro: A&O x 3, no focal deficits noted, normal affect Skin: warm, dry Principal Diagnosis nausea and vomiting pancreatic cyst lipasemia-resolved Discharge Exam CONSTITUTIONAL: WNWD, vitals as above, generally well-appearing EYES: normal conjunctivae, no scleral icterus ENT: external ear and nose normal, MMM RESPIRATORY: clear to auscultation bilaterally, no crackles, rales or wheezes, normal respiratory effort CARDIOVASCULAR: regular rate and rhythm, S1 and 2 heard without murmurs, gallops or rubs, no JVD, no peripheral edema GASTROINTESTINAL: soft, nontender, nondistended MUSCULOSKELETAL: strength 5/5 throughout, head is normocephalic and atraumatic SKIN: warm and dry, no rashes NEUROLOGIC: CN 2-12 grossly intact, no gross focal deficits. PSYCHIATRIC: alert cooperative and oriented to person, place and time. Discharge Data Allergies Allergy/AdvReac Type Severity Reaction Status Date / Time brimonidine Allergy Irritable Unverified 03/02/21 16:30 bupropion [From Wellbutrin] Allergy IRREGULAR Unverified 03/02/21 16:30 HEART RATE oxycodone Allergy Unknown Unverified 03/02/21 16:30 tramadol Allergy Unknown Unverified 03/02/21 16:30 TRAVATAN Z, RESTASIS, Allergy Mild RASH Uncoded 11/02/10 09:32 ALPHAGAN Consultations 03/02/21 18:22 ED Decision to Admit Stat Ordered Studies Laboratory Results WBC 8.04 K/uL (4.8-10.8) 03/03/21 06:30 RBC 4.59 M/uL (4.2-5.4) 03/03/21 06:30 Hgb 13.6 g/dL (12.0-16.0) 03/03/21 06:30 Hct 41.1 % (37-47) 03/03/21 06:30 MCV 89.5 fL (80-100) 03/03/21 06:30 MCH 29.6 pg (25-34) 03/03/21 06:30 MCHC 33.1 g/dL (32-36) 03/03/21 06:30 RDW Std Deviation 44.8 fL (36.4-46.3) 03/03/21 06:30 RDW Coeff of Lina 13.7 % (11.5-14.5) 03/03/21 06:30 Plt Count 154 K/uL (130-400) 03/03/21 06:30 MPV 10.6 fL (7.4-10.4) H 03/03/21 06:30 Immature Gran % (Auto) 0.3 % 03/02/21 14:50 Neut % (Auto) 72.6 % 03/02/21 14:50 Lymph % (Auto) 16.2 % 03/02/21 14:50 Ballard % (Auto) 9.7 % 03/02/21 14:50 Eos % (Auto) 1.0 % 03/02/21 14:50 Baso % (Auto) 0.2 % 03/02/21 14:50 Neut # (Auto) 6.52 K/uL (1.4-6.5) H 03/02/21 14:50 Lymph # (Auto) 1.46 K/uL (1.2-3.4) 03/02/21 14:50 Ballard # (Auto) 0.87 K/uL (0.11-0.59) H 03/02/21 14:50 Eos # (Auto) 0.09 K/uL (0-0.5) 03/02/21 14:50 Baso # (Auto) 0.02 K/uL (0-0.2) 03/02/21 14:50 Immature Gran # (Auto) 0.03 K/uL (0.00-0.02) H 03/02/21 14:50 PT 10.3 Seconds (9.0-12.0) 03/02/21 14:50 INR 1.0 (0.9-1.1) 03/02/21 14:50 Sodium 144 mmol/L (136-145) 03/03/21 06:30 Potassium 3.6 mmol/L (3.5-5.1) 03/03/21 06:30 Chloride 115 mmol/L (98-107) H 03/03/21 06:30 Carbon Dioxide 25 mmol/L (21-32) 03/03/21 06:30 Anion Gap 4.0 (3-11) 03/03/21 06:30 BUN 14 mg/dl (7-18) 03/03/21 06:30 Creatinine 0.52 mg/dl (0.6-1.2) L 03/03/21 06:30 Est Cr Clr Drug Dosing 74.0 ml/min 03/03/21 06:30 Est GFR ( Amer) 100.3 03/03/21 06:30 Est GFR (Non-Af Amer) 86.5 03/03/21 06:30 BUN/Creatinine Ratio 26.5 (10-20) H 03/03/21 06:30 Glucose 77 mg/dl (70-99) 03/03/21 06:30 Calcium 7.5 mg/dl (8.5-10.1) L D 03/03/21 06:30 Total Bilirubin 0.4 mg/dl (0.2-1) 03/03/21 06:30 AST 22 U/L (15-37) 03/03/21 06:30 ALT 37 U/L (12-78) 03/03/21 06:30 Alkaline Phosphatase 66 U/L (45-117) 03/03/21 06:30 Troponin I < 0.015 ng/ml (0-0.045) 03/02/21 14:50 Total Protein 5.9 gm/dl (6.4-8.2) L 03/03/21 06:30 Albumin 3.2 gm/dl (3.4-5.0) L 03/03/21 06:30 Globulin 2.7 gm/dl (2.5-4.0) 03/03/21 06:30 Albumin/Globulin Ratio 1.2 (0.9-2) 03/03/21 06:30 Lipase 295 U/L (73-393) 03/03/21 06:30 Urine Color Yellow 03/02/21 17:30 Urine Appearance Clear (Clear) 03/02/21 17:30 Urine pH 5.5 (4.5-7.5) 03/02/21 17:30 Ur Specific [place] 1.021 (1.000-1.030) 03/02/21 17:30 Urine Protein Negative (Negative) 03/02/21 17:30 Urine Glucose (UA) Negative (Negative) 03/02/21 17:30 Urine Ketones 2+ (Negative) H 03/02/21 17:30 Urine Blood 2+ (Negative) H 03/02/21 17:30 Urine Nitrite Negative (Negative) 03/02/21 17:30 Urine Bilirubin Negative (Negative) 03/02/21 17:30 Urine Urobilinogen Negative (Negative) 03/02/21 17:30 Ur Leukocyte Esterase 2+ (Negative) H 03/02/21 17:30 Urine WBC (Auto) 5-10 /hpf (0-5) H 03/02/21 17:30 Urine RBC (Auto) >30 /hpf (0-4) H 03/02/21 17:30 U Hyaline Cast (Auto) 1-5 /lpf (0-5) 03/02/21 17:30 U Epithel Cells (Auto) >30 /lpf (0-5) H 03/02/21 17:30 Urine Bacteria (Auto) Negative (Negative) 03/02/21 17:30 COVID-19 Eval Order CovFluRsv at [facility] 03/02/21 16:25 SARS-CoV-2 (PCR) NEGATIVE (Negative) 03/02/21 16:25 Influenza Type A (PCR) Negative (Neg) 03/02/21 16:25 Influenza Type B (PCR) Negative (Neg) 03/02/21 16:25 RSV (RT-PCR) Negative (Neg) 03/02/21 16:25 Impressions Abdomen/Pelvis CT 03/02/21 16:[address] WITH IV CONTRAST CT DOSE: 555.77 mGy.cm HISTORY: Acute nausea with vomiting and elevated lipase. elevated lipase, vomiting TECHNIQUE: Multiaxial CT images of the abdomen and pelvis were performed following the IV administration of 85 cc of Optiray, A dose lowering technique was utilized adhering to the principles of ALARA. COMPARISON STUDY: None FINDINGS: The imaged inferior cardiac chambers are unremarkable. Mild dependent bibasilar atelectasis. No pneumatosis or pneumoperitoneum. The spleen and adrenal glands are unremarkable. Mild generalized pancreatic atrophy. No pancreatic ductal dilation or CT evidence of acute pancreatitis. 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 Cholecystectomy with mild intrahepatic and extrahepatic biliary ductal prominence, the common bile duct measuring up to 1.3 cm transversely. Findings are presumed to be on a postsurgical basis. Bilateral renal cysts. Several hypodensities of the kidneys are too small to characterize. There are least 4 nonobstructing calculi of the right kidney. 8 mm calculus of the right renal pelvis. No hydronephrosis. No ureteral calculi identified. Unremarkable urinary bladder. Hysterectomy. No adnexal mass lesion. Calcified plaque the abdominal aorta without aneurysm. There is no adenopathy. Small fat filled left inguinal hernia. No bowel obstruction or bowel wall thickening. Colonic diverticulosis. Appendectomy. Postoperative changes of the anterior abdominal wall. Right hip total joint arthroplasty. Degenerative changes of the spine, pelvis and left hip. T11 and T12 compression deformities without retropulsion are technically age-indeterminate however likely chronic. IMPRESSION: 1. No bowel obstruction or bowel wall thickening. 2. No CT evidence of acute pancreatitis. 3. Cholecystectomy with likely postsurgical related mild intrahepatic and extrahepatic biliary ductal prominence. 4. Nonobstructing right nephrolithiasis with 8 mm calculus of the right renal pelvis. No hydronephrosis. 5. Colonic diverticulosis. 6. Additional findings as above. ACT 112: Negative or not required by law. The above report was generated using voice recognition software. It may contain grammatical, syntax or spelling errors. Electronically signed by: Arnold Nassar M.D. 03/02/2021 5:57 PM Hospital Course (1) Nausea & vomiting: (2) Pancreatic cyst: (3) Elevated lipase: The patient is a 85-year-old female with acute onset nausea and vomiting who presented to the ER. She experienced complete resolution of symptoms after IV fluids and Phenergan. She reports having nausea and vomiting in the past, successfully treated with Phenergan. She is unsure of a trigger although does not appear infected, and blood work revealed evidence of mild dehydration in addition to a lipase of 1091. She did admit to forcing herself to drink 32 ounces of flavored water as part of a post lithotripsy follow-up instruction prior to the onset of nausea and vomiting. On arrival she admitted to no evidence of epigastric pain or food aversion. She was admitted to the hospitalist service and placed on clear liquids. A CT of the abdomen pelvis with IV contrast revealed no evidence of bowel obstruction or bowel wall thickening, no evidence of acute pancreatitis, evidence of prior's cholecystectomy with postsurgical related bile duct prominence, nonobstructing right nephrolithiasis with an 8 mm calculus in the right renal pelvis and no evidence of hydronephrosis. 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 Outpatient [facility] records were reviewed and on two prior CT scans, this finding was not noted. A Intravenous hydration was continued. She remained in normal sinus rhythm on telemetry overnight and had no further episodes of nausea or vomiting. She continued to tolerate p.o. and by time of discharge the following morning she was hemodynamically stable and afebrile, oxygenating well on room air, mentating and ambulating at baseline, tolerating solid foods, and had a complete resolution of symptoms. She also admitted to having a normal bowel movement during her stay. A follow-up with gastroenterology would be recommended to help isolate a pattern for these instances, and to workup her pancreatic cyst. They spoke with her prior to discharge and will set up an EUS in one month. At this time she is stable for discharge with close primary care follow-up recommended. Total Time Total Time Spent Total Time Spent (In Minutes): 60 Total Time Includes: Examination of the Patient, Discharge Planning, Medication Reconciliation and Communication With Other Providers Discharge Plan Discharge Items Patient Disposition: Home - Self-Care Reason For Visit: PANCREATITIS Discharge Diagnosis: nausea and vomiting pancreatic cyst Condition on Discharge: Good Activity: Resume your previous activity Non-emergency contact: Primary Care Provider Call non-emergency contact if: you have any medication questions and your symptoms worsen Follow-up/Referrals: Verona Fitzgerald DO [Primary Care Provider] - (Date & Time 03/08/2021 12:00 PM Provider Verona Fitzgerald DO Department Family [facility] ) Diet: Regular Addtl Attending Provider Instructions: Please take all medications as instructed on discharge as below. Per your request you have been given Phenergan to take as needed for any reoccurring nausea or vomiting episodes. It is recommended that you consider with your primary care physician a referral to a gastroenterology specialist to further discuss your reoccurring episodes of nausea and vomiting. It was a pleasure taking care of you! Please call if you have any questions or problems. You can reach a [facility] hospitalist on duty at [facility] 24 hours a day by calling [phone]. Take care of yourself. Rebeca Vasquez DO [facility] Hospitalist Pending Studies at Discharge: No Stand-Alone Forms: [facility] Medications and DC Order Prescriptions: New promethazine 25 mg tablet 25 mg PO Q6H PRN (Reason: nausea and vomiting) Qty: 20 RF: 0 Continued multivitamin Tablet 1 tab PO DAILY RF: 0 sennosides-docusate sodium [Senna with Docusate Sodium] 8.6-50 mg Tablet 1 tab-cap PO HS RF: 0 simvastatin 10 mg Tablet 10 mg PO HS RF: 0 travoprost 0.004 % drops 1 drp OPB HS RF: 0 diphenoxylate-atropine 2.5-0.025 mg Tablet 1 tab PO DAILY PRN (Reason: Diarrhea) RF: 0 aspirin [Aspirin Low Dose] 81 mg Tablet,Delayed Release (Dr/Ec) 81 mg PO DAILY RF: 0 acetaminophen [Tylenol Extra Strength] 500 mg Tablet 500 mg PO Q6H PRN (Reason: Pain) RF: 0 meloxicam 7.5 mg tablet 7.5 mg PO DAILY RF: 0 famotidine 20 mg Tablet 20 mg PO DAILY RF: 0 meclizine 25 mg Tablet 25 mg PO TID RF: 0 metoprolol succinate 25 mg tablet extended release 24 hr 25 mg PO DAILY RF: 0 Refresh Liquigel 1 % Drops, Liquid Gel 1 drp OPB DAILY RF: 0 minoxidil [Rogaine] 5 % Foam 1 ea TOPICAL DAILY RF: 0 ondansetron 4 mg Film 4 mg PO Q8H PRN (Reason: Nausea) RF: 0 biotin 1,000 mcg Tablet,Chewable 5,000 mcg PO DAILY RF: 0 Glucosamine Chondroitin 550-30-1 mg Capsule 1 cap PO DAILY RF: 0 Discharge Orders: Discharge Order (Routine); Ordered 03/03/21 Ordered By: Rebeca Vasquez Admission Data Admit Date/Time: 03/02/21 18:34 Attending Provider: Rebeca Vasquez Admit Provider: Rebeca Vasquez Primary Care Provider: Verona Fitzgerald Other Providers: Rebeca Vasquez
--- NOTE | 2021-03-14 18:16 | Coding Query ---
CODING QUERY To promote full compliance with coding requirements relating to patient care, provider participation is requested in all cases of industrial recruiter uncertainty. Please assist us with the question(s) below: Coding Question(s): Patient admitted with nausea and voming; elevated Lipase- pseudocyst diagnosed during this brief Inpatient stay. Please document, if known or suspected, the etiology of the patient's nausea and vomiting. Thank you . Natanael Red [facility] Physician's Response(s): It is my opinion that the vomiting was brought on by the increased water intake per the patient report that occurred just prior to admission. Pancreatitis was ruled out, and the elevated lipase may have been from the nausea and vomiting that occurred just prior to this being checked. The pancreatic cyst was not likely the cause of her symptoms. sms Principal Diagnosis: "that condition established after study, to be chiefly responsible for occasioning the admission of the patient to the hospital for care." Co-Existing Principal Diagnosis: "when two or more diagnoses equally meet the criteria for principal diagnosis as determined by the circumstances of admission, diagnostic work up, and/or therapy provided, and the Alphabetic Index, Tabular List, or another coding guideline does not provide sequencing direction, any one of the diagnoses may be sequenced first." "When the physician has documented what appears to be a current diagnosis in the body of the record, but has not included the diagnosis in the final diagnostic statement, the physician should be asked whether the diagnosis should be added." (Source Coding Clinic 2 QTR90. p3-4) IRAMD
== END 2021-03-03 14:41 | disposition home or self-care (01) | DRG 392 ==
LOC: ED 14:12 → 2N 18:34